=== PATIENT | female | born 1955 | race Caucasian/White ===

== ENCOUNTER 2024-05-06 14:41 | Outpatient (CLI) | payer MEDICARE | END 2024-05-06 23:59 | disposition home or self-care (01) | LOC: MRI 14:41 | PROVIDERS: ATTEND Nurse Practitioner Family | DX: M89.312 Hypertrophy of bone, left shoulder (principal); M25.812 Other specified joint disorders, left shoulder; M25.512 Pain in left shoulder | CPT/HCPCS: 73221 ==